=== PATIENT | male | born 1940 | race Caucasian/White ===

== ENCOUNTER → 2019-10-14 | Outpatient (CLI) | payer MEDICARE, OTHER ==
[~2019-10-14] MED LIST: ASPIRIN 81M81 MG/TA2 PO; AVODART 0.5MG0.5 MG PO; CIPRO 500MG TA500 MG PO; COREG 25MG25 MG/TAB PO; FLOMAX 0.40.4 MG/CAP PO; LASIX 40MG TABL40 MG PO; PLAVIX 75MG TAB75 MG PO; ZESTRIL 20MG TA20 MG PO; ZOCOR 10MG10 MG PO
== END ==
LOC: ZLAB.STJ 17:00
DX: Z51.81 Encounter for therapeutic drug level monitoring (principal); D64.9 Anemia, unspecified; I50.9 Heart failure, unspecified; R79.81 Abnormal blood-gas level

== ENCOUNTER 2019-10-25 15:38 | Outpatient (CLI) | payer MEDICARE, OTHER ==
[~2019-10-25] VITALS: Ht 175.3 cm; Wt 56.2 kg
[2019-10-26] MEDS ORDERED: PROVENTIL0.09 MG/A1 IH ×2 (05:39→05:40)
[2019-10-26] MEDS ORDERED: NYSTATIN100000 U/1 TOP (05:40)
[2019-10-26] MEDS ORDERED: TYLENOL 325MG325 MG PO (05:41)
[2019-10-26] MEDS ORDERED: CARDIZEM 60MG T60 MG PO (05:42)
[2019-10-26] MEDS ORDERED: LANOXIN 0.120.125 MG PO (05:42)
[2019-10-26] MEDS ORDERED: MUCUS RELIEF400 M1 PO (05:43)
[2019-10-26] MEDS ORDERED: MILK OF MA400 MG/52 PO (05:44)
[2019-10-26] MEDS ORDERED: FLOMAX 0.40.4 MG/CAP PO (05:44)
[2019-10-26] MEDS ORDERED: PLAVIX 75MG TAB75 MG PO (05:45)
[2019-10-26] MEDS ORDERED: LASIX 20MG TABL20 MG PO (05:45)
[2019-10-26] MEDS ORDERED: PRINIVIL20 MG PO (05:46)
[2019-10-28] MEDS ORDERED: ASPIRIN E.C. 8181 MG PO (09:34)
--- NOTE | 2019-10-28 10:54 | NUR ---
pt was sent for an mri. procedure was cancelled for the t3 bx. by dr kinney
== END 2019-10-28 ==
LOC: COL.RAD
DX: C32.9 Malignant neoplasm of larynx, unspecified (principal); I10 Essential (primary) hypertension

== ENCOUNTER → 2019-11-10 | Outpatient (CLI) | payer MEDICARE, OTHER ==
[~2019-11-10] MED LIST changes: +ASPIRIN E.C. 8181 MG PO; +CARDIZEM 60MG T60 MG PO; +LANOXIN 0.120.125 MG PO; +LASIX 20MG TABL20 MG PO; +MILK OF MA400 MG/52 PO; +MUCUS RELIEF400 M1 PO; +NYSTATIN100000 U/1 TOP; +PRINIVIL20 MG PO; +PROVENTIL0.09 MG/A1 IH; +TYLENOL 325MG325 MG PO
== END ==
LOC: ZLAB.STJ 16:14
DX: L89.153 Pressure ulcer of sacral region, stage 3 (principal)

== ENCOUNTER → 2019-12-09 | Outpatient (CLI) | payer MEDICARE, OTHER | LOC: ZLAB.STJ 12:53 | DX: Z01.89 Encounter for other specified special examinations (principal) ==